=== PATIENT | female | born 1960 | race Caucasian/White ===

== ENCOUNTER → 2016-04-05 | Outpatient (REF) ==
[~2016-04-05] MED LIST: GLYBURIDE1.25 MG PO; LIOTHYRONINE SO5 MCG PO; LISINOPRIL2.5 MG PO; METFORMIN500 MG PO; SIMVASTATIN5 MG PO; ULTRAM 50MG TAB50 MG PO; ZOFRAN4 M1 PO
== END ==
LOC: ZLAB.WCH 15:18
DX: Z01.89 Encounter for other specified special examinations (principal)

== ENCOUNTER → 2016-04-06 | Outpatient (REF) ==
[2016-04-06 17:22] LABS: THYROID STIMULATING HORMONE 9.3 uIU/mL (0.465-4.680)
== END ==
LOC: ZLAB.WCH 16:23
PROVIDERS: Family Medicine
DX: Z01.89 Encounter for other specified special examinations (principal)

== ENCOUNTER → 2016-05-12 | Outpatient (CLI) | payer BC | LOC: SUN.DIA 08:11 | DX: E11.65 Type 2 diabetes mellitus with hyperglycemia (principal); Z79.84 Long term (current) use of oral hypoglycemic drugs; Z68.36 Body mass index [BMI] 36.0-36.9, adult; E66.9 Obesity, unspecified; Z71.3 Dietary counseling and surveillance | CPT/HCPCS: G0108 ==

== ENCOUNTER → 2016-06-02 | Outpatient (CLI) | payer BC | LOC: SUN.DIA 08:56 | DX: E11.65 Type 2 diabetes mellitus with hyperglycemia (principal); Z79.84 Long term (current) use of oral hypoglycemic drugs; E66.9 Obesity, unspecified; Z71.3 Dietary counseling and surveillance | CPT/HCPCS: G0109 ==

== ENCOUNTER → 2016-06-09 | Outpatient (CLI) | payer OTHER | LOC: SUN.DIA 11:01 | DX: E11.65 Type 2 diabetes mellitus with hyperglycemia (principal); Z79.84 Long term (current) use of oral hypoglycemic drugs; Z68.36 Body mass index [BMI] 36.0-36.9, adult; E66.9 Obesity, unspecified; Z71.3 Dietary counseling and surveillance; Z87.891 Personal history of nicotine dependence | CPT/HCPCS: G0108 ==

== ENCOUNTER → 2016-06-16 | Outpatient (CLI) | payer OTHER | LOC: SUN.DIA 09:34 | DX: E11.65 Type 2 diabetes mellitus with hyperglycemia (principal); Z79.84 Long term (current) use of oral hypoglycemic drugs; E66.9 Obesity, unspecified; Z71.3 Dietary counseling and surveillance; Z87.891 Personal history of nicotine dependence | CPT/HCPCS: G0109 ==

== ENCOUNTER → 2016-06-23 | Outpatient (CLI) | payer OTHER | LOC: SUN.DIA 10:46 | DX: E11.65 Type 2 diabetes mellitus with hyperglycemia (principal); Z79.84 Long term (current) use of oral hypoglycemic drugs; E66.9 Obesity, unspecified; Z71.3 Dietary counseling and surveillance | CPT/HCPCS: G0109 ==

== ENCOUNTER → 2016-07-05 | Outpatient (REF) ==
[2016-07-05 13:13] LABS: THYROID STIMULATING HORMONE 0.729 uIU/mL (0.465-4.680)
== END ==
LOC: ZLAB.WCH 12:14
PROVIDERS: Family Medicine
DX: Z01.89 Encounter for other specified special examinations (principal)

== ENCOUNTER → 2016-09-22 | Outpatient (CLI) | payer OTHER | LOC: SUN.DIA 11:39 | DX: E11.9 Type 2 diabetes mellitus without complications (principal); E66.9 Obesity, unspecified; Z68.41 Body mass index [BMI] 40.0-44.9, adult; Z71.3 Dietary counseling and surveillance; Z87.891 Personal history of nicotine dependence | CPT/HCPCS: G0108 ==

== ENCOUNTER → 2016-10-04 | Outpatient (REF) | LOC: ZLAB.WCH 08:40 | DX: Z01.89 Encounter for other specified special examinations (principal) ==

== ENCOUNTER → 2017-05-05 | Outpatient (REF) ==
[2017-05-05 18:57] LABS: THYROID STIMULATING HORMONE 47.7 uIU/mL (0.465-4.680)
== END ==
LOC: ZLAB.WCH 18:07
PROVIDERS: Family Medicine
DX: Z01.89 Encounter for other specified special examinations (principal)

== ENCOUNTER → 2017-05-06 | Outpatient (REF) | LOC: ZLAB.WCH 19:22 | DX: Z01.89 Encounter for other specified special examinations (principal) ==

== ENCOUNTER → 2017-08-11 | Outpatient (REF) ==
[2017-08-11 10:33] LABS: THYROID STIMULATING HORMONE 0.587 uIU/mL (0.465-4.680)
== END ==
LOC: ZLAB.WCH 09:47
PROVIDERS: Family Medicine
DX: Z01.89 Encounter for other specified special examinations (principal)

== ENCOUNTER → 2018-02-19 | Outpatient (REF) ==
[2018-02-19 10:04] LABS: THYROID STIMULATING HORMONE 11.8 uIU/mL (0.465-4.680)
== END ==
LOC: ZLAB.WCH 09:24
PROVIDERS: Family Medicine
DX: Z01.89 Encounter for other specified special examinations (principal)

== ENCOUNTER → 2018-07-09 | Outpatient (REF) | LOC: ZLAB.WCH 09:26 | DX: Z01.89 Encounter for other specified special examinations (principal) ==

== ENCOUNTER → 2018-07-14 | Outpatient (REF) ==
[2018-07-14 15:41] LABS: THYROID STIMULATING HORMONE 3.05 uIU/mL (0.465-4.680)
== END ==
LOC: ZLAB.WCH 14:44
PROVIDERS: Family Medicine
DX: Z01.89 Encounter for other specified special examinations (principal)

== ENCOUNTER 2019-09-09 04:54 | Emergency (ER) | payer BC, OTHER ==
[~2019-09-09] VITALS: Ht 162.6 cm; Wt 102.7 kg
[~2019-09-09 04:54] MED LIST changes: +AMARYL1 MG PO; -GLYBURIDE1.25 MG PO; -LIOTHYRONINE SO5 MCG PO; +SYNTHROID0.112 MG/T PO
[2019-09-09 05:02] VITALS: TEMP 98.6
[2019-09-09] MEDS ORDERED: CEPHALEXIN500 M1 PO (05:13)
[2019-09-09 05:53] LABS: BASO % 0.4 % (0.0-2.0); EOS # 0.1 (0.0-0.7); EOS % 1.6 % (0-4.0); GRAN # 5.1 (1.4-6.5); GRAN % 75.1 % (42.2-75.2); HEMOGLOBIN 10.5 g/dl (12.5-16.0); LYMPH # 0.7 (1.2-3.4); LYMPH % 10.7 % (20.0-51.0); MEAN CELL VOLUME 88 fl (80.0-100.0); MEAN CORPUSCULAR HEMOGLOBIN 28 pg (27.0-31.0); MEAN CORPUSCULAR HGB CONC 32 g/dl (33.0-37.0); MEAN PLATELET VOLUME 9.6 fl (7.4-10.4); MONO # 0.8 (0.1-0.6); MONO % 11.5 % (1.7-9.3); PLATELET COUNT 216 K/mm3 (130-400); RED BLOOD COUNT 3.76 M/mm3 (4.10-5.30); REDCELL DISTRIBUTION WIDTH-CV 13.2 % (11.5-14.5)
[2019-09-09] MEDS ORDERED: DETROL LA4 PO (06:08)
[2019-09-09] MEDS ORDERED: ASPIRIN 81M81 MG/TA2 PO (06:09)
[2019-09-09] MEDS ORDERED: ACTOS30 MG PO (06:09)
[2019-09-09] MEDS ORDERED: PERCOCET 325 MG1 TA2 PO (06:10)
[2019-09-09] MEDS ORDERED: CYTOMEL 5MC5 MCG/TAB PO (06:11)
[2019-09-09] MEDS ORDERED: IBU800 M1 PO (06:12)
[2019-09-09] MEDS ORDERED: LIPITOR 10MG10 MG PO (06:12)
[2019-09-09] MEDS ORDERED: AMARYL1 MG PO (06:12)
[2019-09-09 06:13] LABS: ALBUMIN 3.5 gm/dL (3.5-5.0); BILIRUBIN,TOTAL 0.5 mg/dL (0.0-1.0); CALCIUM 9.1 mg/dL (8.4-10.2); CREATININE, serum 0.54 (0.52-1.25); POTASSIUM 3.8 mmol/L (3.4-5.0); TOTAL PROTEIN 6.7 gm/dL (6.4-8.2)
[2019-09-09] MEDS ORDERED: GLUCOPHAGE1000 MG PO (06:13)
[2019-09-09] MEDS ORDERED: PRILOSEC 20MG20 MG PO (06:13)
[2019-09-09] MEDS ORDERED: ADULT MULTIVIT1 EACH PO (06:19)
[2019-09-09 07:57] VITALS: BP 137/83
[2019-09-09] MEDS ORDERED: BACTRIM DS 8001 TAB PO (08:13)
[2019-09-09 08:25] VITALS: PULSE 84
== END 2019-09-09 08:27 | disposition home or self-care (01) ==
LOC: COL.ER 04:54
PROVIDERS: Emergency Medicine
DX: L02.211 Cutaneous abscess of abdominal wall (principal); E11.9 Type 2 diabetes mellitus without complications; I10 Essential (primary) hypertension; E78.5 Hyperlipidemia, unspecified; Z90.49 Acquired absence of other specified parts of digestive tract; Z90.710 Acquired absence of both cervix and uterus; Z87.891 Personal history of nicotine dependence; Z79.82 Long term (current) use of aspirin; Z79.84 Long term (current) use of oral hypoglycemic drugs
CPT/HCPCS: J0690; J7030; Q9967

== ENCOUNTER → 2019-11-09 | Outpatient (CLI) | payer BC, OTHER ==
[~2019-11-09] MED LIST changes: +ACTOS30 MG PO; +ADULT MULTIVIT1 EACH PO; +ASPIRIN 81M81 MG/TA2 PO; +BACTRIM DS 8001 TAB PO; +CEPHALEXIN500 M1 PO; +CYTOMEL 5MC5 MCG/TAB PO; +DETROL LA4 PO; +GLUCOPHAGE1000 MG PO; +IBU800 M1 PO; +LIPITOR 10MG10 MG PO; +PERCOCET 325 MG1 TA2 PO; +PRILOSEC 20MG20 MG PO
== END ==
LOC: MC.RAD 07:15
DX: Z12.31 Encounter for screening mammogram for malignant neoplasm of breast (principal)